=== PATIENT | female | born 1995 | race African-American/Black ===

== ENCOUNTER 2019-06-19 13:09 | Emergency (ER) | payer BC, MEDICAID ==
[~2019-06-19] VITALS: Ht 162.6 cm; Wt 62.0 kg
[2019-06-19] MEDS ORDERED: CEFTRIAXONE SODIUM 250 MG/VIAL IM ONE (14:45)
[2019-06-19] MEDS ORDERED: IBUPROFEN 600MG TABLET PO ONE (14:45)
[2019-06-19 15:25] LABS: CLARITY URINE CLEAR (CLEAR); COLOR URINE YELLOW (YELLOW); KETONES URINE NEGATIVE (NEGATIVE); LEUKOCYTE ESTERASE URINE NEGATIVE (NEGATIVE); NITRITE URINE NEGATIVE (NEGATIVE); OCCULT BLOOD URINE NEGATIVE (NEGATIVE); PH URINE 6.5 (4.5-8.0); PROTEIN URINE NEGATIVE (NEGATIVE); SPECIFIC GRAVITY URINE 1.023 (1.005-1.030)
[2019-06-19] MEDS ORDERED: DOXYCYCLINE HYCLATE 100MG CAPSULE PO ONE (16:45)
[2019-06-19 17:16] VITALS: BP 117/74
[2019-06-22 04:08] LABS: CHLAMYDIA TRACHOMATIS NAA Negative (Negative); NEISSERIA GONORRHOEAE NAA Negative (Negative)
== END 2019-06-19 17:10 | disposition home or self-care (01) ==
LOC: ER 13:25
DX: A64 Unspecified sexually transmitted disease (principal); R10.2 Pelvic and perineal pain
CPT/HCPCS: 76830; 76856; 81003; 81025; 87210; 87491; 87591; 96372; 99284; J0696